=== PATIENT | female | born 1960 | race Caucasian/White ===

== ENCOUNTER 2017-12-08 06:36 | Observation (INO) | payer OTHER ==
--- NOTE | 2017-12-08 06:47 | ED ---
Chest Pain HPI - General Source: patient, EMS, RN notes reviewed Mode of arrival: EMS Limitations: no limitations <Simón Stewart - Last Filed: 12/08/17 07:49> <Sonu Tyler - Last Filed: 12/08/17 08:47> - General Stated Complaint: chest pain Time Seen by Provider: 12/08/17 06:39 - History of Present Illness Initial Comments: This is a 57-year-old female presents emergency department via EMS chief complaint of chest discomfort. Patient states that the pain woke up sleep. She states she had anterior chest pain and elevated up into her jaw. Patient states never had like this in the past. Patient was given aspirin, nitro by EMS. She did state nitro alleviated most of her symptoms. Patient states she does not see a physician a regular basis but denies history of hyperlipidemia, diabetes, hypertension. Patient does have a history of COPD, PE. She states she does not take any current anticoagulants. Patient does have family history of heart disease. She denies any current nausea, vomiting, fever, chills or URI symptoms. (Simón Stewart) - Related Data Home Medications Medication Instructions Recorded Confirmed Levothyroxine Sodium [Synthroid] 150 mcg PO DAILY 12/08/17 12/08/17 Omeprazole [PriLOSEC] 20 mg PO DAILY 12/08/17 12/08/17 Allergies Allergy/AdvReac Type Severity Reaction Status Date / Time codeine AdvReac Nausea & Verified 12/08/17 07:51 Vomiting meperidine [From Demerol] AdvReac Nausea & Verified 12/08/17 07:51 Vomiting Review of Systems ROS Other: All systems not noted in ROS Statement are negative. <Simón Stewart - Last Filed: 12/08/17 07:49> ROS Other: All systems not noted in ROS Statement are negative. <Sonu Tyler - Last Filed: 12/08/17 08:47> ROS Statement: Those systems with pertinent positive or pertinent negative responses have been documented in the HPI. EKG Findings - EKG Comments: EKG Findings:: EKG performed at 6:49 normal sinus rhythm with rate of 71 UT 142 QRS 74 QT/QTC 436/474 <Simón Stewart - Last Filed: 12/08/17 07:49> General Exam General appearance: alert, in no apparent distress Head exam: Present: atraumatic, normocephalic, normal inspection Eye exam: Present: normal appearance, PERRL, EOMI. Absent: scleral icterus, conjunctival injection, periorbital swelling ENT exam: Present: normal exam, normal oropharynx, mucous membranes moist Neck exam: Present: normal inspection, full ROM. Absent: tenderness, meningismus, lymphadenopathy Respiratory exam: Present: normal lung sounds bilaterally. Absent: respiratory distress, wheezes, rales, rhonchi, stridor Cardiovascular Exam: Present: regular rate, normal rhythm, normal heart sounds. Absent: systolic murmur, diastolic murmur, rubs, gallop, clicks GI/Abdominal exam: Present: soft, normal bowel sounds. Absent: distended, tenderness, guarding, rebound, rigid Back exam: Absent: CVA tenderness (R), CVA tenderness (L) Neurological exam: Present: alert, oriented X3, CN II-XII intact Skin exam: Present: warm, dry, intact, normal color. Absent: rash <Simón Stewart - Last Filed: 12/08/17 07:49> Course <Simón Stewart - Last Filed: 12/08/17 07:49> <Sonu Tyler - Last Filed: 12/08/17 08:47> Vital Signs 12/08/17 06:39 Temperature 97.9 F Pulse Rate 73 Respiratory 16 Rate Blood Pressure 113/63 - Reevaluation(s) Reevaluation #1: 12/08/17 06:46 Patient was given aspirin and nitro prior arrival not given in the emergency department (Simón Stewart) Reevaluation #2: 12/08/17 07:44 PA supervision: I personally do a [id number] evaluation the patient did discuss findings with her and her family members were present. I do agree with the assessment and plans as written. Patient did demonstrate retrosternal chest pain rating to her jaw on her left arm. This woke her up from sleep. It was very severe she stated 15/10 severity she's never had pain like this before the pain continue for more than 20 minutes before calling EMS she was given aspirin nitroglycerin which did help the pain to resolve. She is been watching emergency department throughout her stay in the morning and he has no further pain. EKG showed no acute findings. Patient is a former smoker and this does increase her risk for CAD. Patient will be admitted for evaluation inpatient with cardiology consultation. Her physical examination a my exam was unremarkable (Sonu Tyler) Reevaluation #3: 12/08/17 07:58 Patient was noted have an elevated d-dimer does have a prior history of PE. CAT scan has been ordered and is pending at this time. (Sonu Tyler) Reevaluation #4: 12/08/17 08:47 Computed tomography scan was evaluated. No evidence of pulmonary embolism. ( Sonu Tyler) Chest Pain MDM <Simón Stewart - Last Filed: 12/08/17 07:49> <Sonu Tyler - Last Filed: 12/08/17 08:47> - [facility] Patient is pain-free and will be admitted for evaluation by cardiology. I did discuss the case with Dr. Damian. Patient did have a CAT scan of the chest as she had an elevated d-dimer. This is negative for PE. (Sonu Tyler) Disposition <Simón Stewart - Last Filed: 12/08/17 07:49> <Sonu Tyler - Last Filed: 12/08/17 08:47> Clinical Impression: Chest pain, Unstable angina pectoris, Acute coronary syndrome Disposition: ADMITTED IP TO THIS [facility] Condition: Stable
[2017-12-08] MEDS ORDERED: NITROGLYCERIN OINT 1 INCH/GM PACKET TOPICAL STA (06:59)
[2017-12-08] MEDS ORDERED: HEPARIN SODIUM,PORCINE 5,000 UNIT/ML 1 ML VIAL IV STA (07:00)
[2017-12-08 07:17] LABS: Basophils % (A) 1 %; Eosinophils # (A) 0.1 k/uL (0-0.7); Eosinophils % (A) 2 %; HCT 34.7 % (34.0-46.0); Hypochromasia Slight; Lymphocytes # (A) 2.3 k/uL (1.0-4.8); Lymphocytes % (A) 46 %; MCH 25.2 pg (25.0-35.0); MCHC 31.8 g/dL (31.0-37.0); MCV 79.2 fL (80.0-100.0); Mean Platelet Volume 7.4; Monocytes # (A) 0.3 k/uL (0-1.0); Monocytes % (A) 7 %; Neutrophils # (A) 2.1 k/uL (1.3-7.7); Neutrophils % (A) 42 %; Platelet Count 336 k/uL (150-450); RBC 4.38 m/uL (3.80-5.40); RDW 15.4 % (11.5-15.5); WBC 5.1 k/uL (3.8-10.6)
[2017-12-08 07:28] LABS: ALT 32 U/L (9-52); AST 32 U/L (14-36); Alkaline Phosphatase 96 U/L (38-126); Anion Gap 9 mmol/L; Blood Urea Nitrogen 15 mg/dL (7-17); Calcium 9.5 mg/dL (8.4-10.2); Carbon Dioxide 22 mmol/L (22-30); Chloride 109 mmol/L (98-107); Glucose 99 mg/dL (74-99); Lipase 80 U/L (23-300); Magnesium 1.7 mg/dL (1.6-2.3); Sodium 140 mmol/L (137-145); Total Bilirubin 0.4 mg/dL (0.2-1.3); Total Protein 6.9 g/dL (6.3-8.2)
[2017-12-08 07:31] LABS: Creatine Kinase 80 U/L (30-135)
[2017-12-08 07:42] LABS: Prothrombin Time 9.9 sec (9.0-12.0)
[2017-12-08 07:44] LABS: Creatine Kinase MB 0.8 ng/mL (0.0-2.4); Troponin I <0.012 ng/mL (0.000-0.034)
[2017-12-08 07:47] LABS: D-Dimer 1.34 mg/L FEU (<0.60)
[2017-12-08] MEDS ORDERED: NITROGLYCERIN SL TABS 0.4 MG TAB SUBLINGUAL PRN (07:47)
--- NOTE | 2017-12-08 08:07 | XR ---
EXAMINATION TYPE: XR chest 2V DATE OF EXAM: 12/08/2017 COMPARISON: NONE HISTORY: Chest pain TECHNIQUE: Frontal and lateral views of the chest are obtained. FINDINGS: There is no focal air space opacity, pleural effusion, or pneumothorax seen. The cardiac silhouette size is within normal limits. There are prominent lung volumes. There are overlying card iac leads. The osseous structures are intact. IMPRESSION: No acute cardiopulmonary process.
--- NOTE | 2017-12-08 08:36 | CT ---
CT CHEST FOR PULMONARY EMBOLISM. EXAMINATION TYPE: CT chest angio for PE DATE OF EXAM: 12/08/2017 INDICATION: SOB CT DLP: 592 mGycm, Automated exposure control for dose reduction was used. CONTRAST: Patient injected with 82 mL of Isovue 370. COMPARISON: None TECHNIQUE: CT of the chest is performed on a spiral scan at 2 mm thick sections. Study is performed with intravenous contrast timed for evaluation for pulmonary embolism. This will limit additional po rtions of the evaluation. 3-D MIP images reconstructed by the technologist are reviewed on the compu ter in the coronal and sagittal planes. FINDINGS: No persistent filling defects are evident to suggest an acute pulmonary embolism. No mediastinal or hilar adenopathy enlarged by CT criteria is evident. The ascending aorta diameter at the level of the main pulmonary artery is 3.3 cm. The main pulmonary artery diameter at the bifur cation is 2.0 cm. Lung windows are clear. Limited CT section through the upper abdomen are unremarkable. IMPRESSIONS: 1. No acute pulmonary embolism.
[2017-12-08] MEDS: HEPARIN SOD,PORK IN 0.45% NACL 25,000 UNIT in 0.45% NACL 1 500ML.BAG IV SCH (08:51)
[2017-12-08] MEDS: ACETAMINOPHEN TAB 325 MG TAB PO PRN ×2 (11:49→19:33)
[2017-12-08] MEDS ORDERED: HEPARIN SODIUM,PORCINE 5,000 UNIT/ML 1 ML VIAL IV PRN (13:25)
[2017-12-08 14:06] LABS: Creatine Kinase 71 U/L (30-135)
[2017-12-08 14:19] LABS: Creatine Kinase MB 0.7 ng/mL (0.0-2.4); Troponin I <0.012 ng/mL (0.000-0.034)
--- NOTE | 2017-12-08 14:55 | P.HPIM ---
History of Present Illness 57-year-old pleasant female came in with the complaints of 10 /10 chest pain radiating to the jaw and abdomen along with diaphoresis, denied any short of breath nonpruritic in nature when she woke up today morning. Lasted about 15 minutes improved with aspirin and sublingual nitroglycerin pain and that was given by EMS. Patient EKG did show some T-wave inversions in the anterior leads. Troponin is negative. Patient doesn't have any family history of premature coronary artery disease denied any history of hypertension that was metastatic hyperlipidemia. Quit smoking 20 years ago. Her chest pain is not related to food. Her chest pain completely resolved now patient does have a nitro patch in place. CT angios the chest is negative for pulmonary embolism. Review of Systems REVIEW OF SYSTEMS: CONSTITUTIONAL: No fever, no malaise, no fatigue. HEENT: No recent visual problems or hearing problems. Denied any sore throat. CARDIOVASCULAR: no cough, no hemoptysis. GASTROINTESTINAL: No diarrhea, no nausea, no vomiting, no abdominal pain. Normoactive bowel sounds. NEUROLOGICAL: No headaches, no weakness, no numbness. HEMATOLOGICAL: Denies any bleeding or petechiae. GENITOURINARY: Denies any burning micturition, frequency, or urgency. MUSCULOSKELETAL/RHEUMATOLOGICAL: Denies any joint pain, swelling, or any muscle pain. ENDOCRINE: Denies any polyuria or polydipsia. The rest of the 14-point review of systems is negative. 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 History of Any Multi-Drug Resistant Organisms: None Reported Past Surgical History: Appendectomy, Section, Hysterectomy Additional Past Surgical History / Comment(s): thyroid removed, surgery for paralized vocal cord-caused narrowing of trachea, L leg large lipoma removed, multiple laparoscopic surgeries for adhesions. Additional Past Anesthesia/Blood Transfusion Reaction / Comment(s): PT HAS NARROWED TRACHEA D/T SURGERY FOR PARALYZED VOCAL CORD-CARE NEEDS TO BE TAKEN IF NEED TO INTUBATE. Smoking Status: Former smoker - Past Family History Father Family Medical History: Cancer Additional Family Medical History / Comment(s): Father from cancerous brain tumor at the age of 54yrs. Cancer runs very strongley in his family, 6 out of his 7 siblings from various types of cancer. Mother Family Medical History: Coronary Artery Disease (CAD), Dementia, Hypertension Additional Family Medical History / Comment(s): Mother had an arrhythmia. She at the age of 73 yrs from dementia. Medications and Allergies Home Medications Medication Instructions Recorded Confirmed Type Levothyroxine Sodium [Synthroid] 150 mcg PO DAILY 12/08/17 12/08/17 History Omeprazole [PriLOSEC] 20 mg PO DAILY 12/08/17 12/08/17 History Allergies Allergy/AdvReac Type Severity Reaction Status Date / Time codeine AdvReac Nausea & Verified 12/08/17 10:25 Vomiting meperidine [From Demerol] AdvReac Nausea & Verified 12/08/17 10:25 Vomiting Physical Exam Vitals: Vital Signs Temp Pulse Pulse Resp BP BP Pulse Ox 12/08/17 13:19 97.2 F L 60 18 127/82 100 12/08/17 13:10 97.9 F 59 L 18 106/69 99 12/08/17 12:54 59 L 18 106/69 99 12/08/17 11:50 60 18 120/85 98 12/08/17 08:54 59 L 18 104/69 100 12/08/17 06:39 97.9 F 73 16 113/63 Intake and Output 12/07/17 12/08/17 12/08/17 22:59 06:59 14:59 Other: Weight 83.915 kg 84.5 kg PHYSICAL EXAMINATION: GENERAL: The patient is alert and oriented x3, not in any acute distress. Well developed, well nourished. HEENT: Pupils are round and equally reacting to light. EOMI. No scleral icterus. No conjunctival pallor. Normocephalic, atraumatic. No pharyngeal erythema. No thyromegaly. CARDIOVASCULAR: S1 and S2 present. No murmurs, rubs, or gallops. PULMONARY: Chest is clear to auscultation, no wheezing or crackles. ABDOMEN: Soft, nontender, nondistended, normoactive bowel sounds. No palpable organomegaly. MUSCULOSKELETAL: No joint swelling or deformity. EXTREMITIES: No cyanosis, clubbing, or pedal edema. NEUROLOGICAL: Gross neurological examination did not reveal any focal deficits. SKIN: No rashes. Results CBC & Chem 7: 12/08/17 06:49 12/08/17 06:49 Labs: Abnormal Lab Results - Last 24 Hours (Table) 12/08/17 12/08/17 12/08/17 Range/Units 06:49 06:49 06:49 Hgb 11.0 L (11.4-16.0) gm/dL MCV 79.2 L (80.0-100.0) fL APTT 20.0 L (22.0-30.0) sec D-Dimer 1.34 H (<0.60) mg/L FEU Chloride 109 H (98-107) mmol/L 12/08/17 Range/Units 13:27 Hgb (11.4-16.0) gm/dL MCV (80.0-100.0) fL APTT 38.7 H (22.0-30.0) sec D-Dimer (<0.60) mg/L FEU Chloride (98-107) mmol/L Thrombosis Risk Factor Assmnt - Choose All That Apply Any of the Below Risk Factors Present?: Yes Each Factor Represents 1 point: Abnormal pulmonary function (COPD), Age 41-60 years, Obesity (BMI >25) Other Risk Factors: Yes Each Risk Factor Represents 3 Points: History of DVT/PE Other congenital or acquired thrombophilia - If yes, enter type in comment: No Thrombosis Risk Factor Assessment Total Risk Factor Score: 6 Thrombosis Risk Factor Assessment Level: High Risk Assessment and Plan Plan: Chest pain with typical features: Rule out acute coronary syndromes unstable angina, cardiology will be consulted patient may need a stress test or cardiac catheterization depending on follow-up troponins first troponin is negative. -Gastroesophageal reflux disease -Hypothyroidism For above-mentioned chronic medical problems patient will be resumed and continued on home medications.
--- NOTE | 2017-12-08 15:39 | P.CRDCN ---
History of Present Illness History of present illness: Mrs. Richard is a pleasant 57-year-old female past medical history significant for hypothyroidism, COPD and history of DVT and multiple PE's after surgery. She denies history of coronary artery disease but states she was told she has angina approximately 5 years ago. We've been asked to see her in consultation for complaints of chest pain. She woke up this morning with an acute onset of significant pain in her chest. The pain is described as a heavy pressure sensation that was crushing her chest and keeping her from taking a deep breath. The pain was in her entire chest from epigastric region up into her neck and jaw. She sat on the edge of the bed and tried to work through the pain thinking maybe it was gas pain or muscular. She did some stretching exercises but achieved no relief. The pain was persisted approximately 30 minutes with shortness of breath, dizziness, nausea and diaphoresis. EMS arrived and gave her ASA and SL nitro which provided her with relief of her pain. She has had no further symptoms of chest discomfort, shortness of breath, nausea or diaphoresis however continues to feel dizzy and has a pain in her left lower jaw. She denies associated palpitations or vomiting. She denies radiation to the arms. EKG reveals sinus mechanism with flattened T waves anteriorly. Chest x-ray negative for an acute cardiopulmonary process. CTA chest negative for pulmonary embolism. The descending aorta diameter of 3.3 cm. Laboratory data reviewed, hemoglobin 11, platelets 336, d-dimer 1.34, sodium 140 , potassium 4.0, magnesium 1.7, creatinine 0.72 and cardiac enzymes negative 2. Current daily medications include Synthroid and Prilosec. There is no old cardiac diagnostic testing to review. Review of Systems At the time of my exam: CONSTITUTIONAL: Denies fever. Denies chills. EYES: Denies blurred vision. Denies vision changes. Denies eye pain. EARS, NOSE, MOUTH & THROAT: Denies headache. Denies sore throat. Denies ear pain. Complains of left jaw discomfort. CARDIOVASCULAR: Denies chest pain. Denies shortness of breath. Denies orthopnea. Denies PND. Denies palpitations. RESPIRATORY: Denies cough. GASTROINTESTINAL: Denies abdominal pain. Denies diarrhea. Denies constipation. Denies nausea. Denies vomiting. MUSCULOSKELETAL: Denies myalgias. INTEGUMENTARY: Denies pruitis. Denies rash. NEUROLOGIC: Denies numbness. Denies tingling. Denies weakness. Complains of dizziness. PSYCHIATRIC: Denies anxiety. Denies depression. ENDOCRINE: Denies fatigue. Denies weight change. Denies polydipsia. Denies polyurina. GENITOURINARY: Denies burning, hematuria or urgency with micturation. HEMATOLOGIC: Denies history of anemia. Denies bleeding. 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 History of Any Multi-Drug Resistant Organisms: None Reported Past Surgical History: Appendectomy, Section, Hysterectomy Additional Past Surgical History / Comment(s): thyroid removed, surgery for paralized vocal cord-caused narrowing of trachea, L leg large lipoma removed, multiple laparoscopic surgeries for adhesions. Additional Past Anesthesia/Blood Transfusion Reaction / Comment(s): PT HAS NARROWED TRACHEA D/T SURGERY FOR PARALYZED VOCAL CORD-CARE NEEDS TO BE TAKEN IF NEED TO INTUBATE. Smoking Status: Former smoker - Past Family History Father Family Medical History: Cancer Additional Family Medical History / Comment(s): Father from cancerous brain tumor at the age of 54yrs. Cancer runs very strongley in his family, 6 out of his 7 siblings from various types of cancer. Mother Family Medical History: Coronary Artery Disease (CAD), Dementia, Hypertension Additional Family Medical History / Comment(s): Mother had an arrhythmia. She at the age of 73 yrs from dementia. Medications and Allergies Home Medications Medication Instructions Recorded Confirmed Type Levothyroxine Sodium [Synthroid] 150 mcg PO DAILY 12/08/17 12/08/17 History Omeprazole [PriLOSEC] 20 mg PO DAILY 12/08/17 12/08/17 History Allergies Allergy/AdvReac Type Severity Reaction Status Date / Time codeine AdvReac Nausea & Verified 12/08/17 10:25 Vomiting meperidine [From Demerol] AdvReac Nausea & Verified 12/08/17 10:25 Vomiting Physical Exam Vitals: Vital Signs Temp Pulse Pulse Resp BP BP Pulse Ox 12/08/17 13:19 97.2 F L 60 18 127/82 100 12/08/17 13:10 97.9 F 59 L 18 106/69 99 12/08/17 12:54 59 L 18 106/69 99 12/08/17 11:50 60 18 120/85 98 12/08/17 08:54 59 L 18 104/69 100 12/08/17 06:39 97.9 F 73 16 113/63 Intake and Output 12/08/17 12/08/17 12/08/17 06:59 14:59 22:59 Other: Weight 83.915 kg 84.5 kg Blood pressure 127/82 heart rate 60 afebrile maintaining oxygen saturation on room air GENERAL: This is a 57-year-old female in no apparent distress at the time of my examination. HEENT: Head is atraumatic, normocephalic. Pupils are equal, round. Sclerae anicteric. Conjunctivae are clear. Mucous membranes of the mouth are moist. Neck is supple. There is no jugular venous distention. No carotid bruit is heard. LUNGS: Clear to auscultation no wheezes, rales or rhonchi. No chest wall tenderness is noted on palpation or with deep breathing. HEART: Regular rate and rhythm without murmurs, rubs or gallops. S1 and S2 heard. ABDOMEN: Soft, nontender. Bowel sounds are heard. No organomegaly noted. EXTREMITIES: No evidence of peripheral edema and no calf tenderness noted. VASCULAR: Radial and dorsalis pedis pulses palpated, no evidence of clubbing. NEUROLOGIC: Patient is awake, alert and oriented x3. Results 12/08/17 06:49 12/08/17 06:49 Cardiac Enzymes 12/08/17 12/08/17 12/08/17 Range/Units 06:49 06:49 13:27 AST 32 (14-36) U/L CK-MB (CK-2) 0.8 0.7 (0.0-2.4) ng/mL Troponin I <0.012 <0.012 (0.000-0.034) ng/mL Coagulation 12/08/17 12/08/17 Range/Units 06:49 13:27 PT 9.9 (9.0-12.0) sec APTT 20.0 L 38.7 H (22.0-30.0) sec CBC 12/08/17 Range/Units 06:49 WBC 5.1 (3.8-10.6) k/uL RBC 4.38 (3.80-5.40) m/uL Hgb 11.0 L (11.4-16.0) gm/dL Hct 34.7 (34.0-46.0) % Plt Count 336 (150-450) k/uL Comprehensive Metabolic Panel 12/08/17 Range/Units 06:49 Sodium 140 (137-145) mmol/L Potassium 4.0 (3.5-5.1) mmol/L Chloride 109 H (98-107) mmol/L Carbon Dioxide 22 (22-30) mmol/L BUN 15 (7-17) mg/dL Creatinine 0.72 (0.52-1.04) mg/dL Glucose 99 (74-99) mg/dL Calcium 9.5 (8.4-10.2) mg/dL AST 32 (14-36) U/L ALT 32 (9-52) U/L Alkaline Phosphatase 96 (38-126) U/L Total Protein 6.9 (6.3-8.2) g/dL Albumin 4.0 (3.5-5.0) g/dL Current Medications Generic Name Dose Route Start Last Admin Trade Name Freq PRN Reason Stop Dose Admin Acetaminophen 650 mg 12/08/17 11:42 12/08/17 11:49 Tylenol Tab PO 650 mg Q6HR PRN Administration Fever and/ or Mild Pain Aspirin 325 mg 12/09/17 09:00 Aspirin PO DAILY [facility] Heparin Sodium (Porcine) 0 unit 12/08/17 13:25 Heparin IV PER PROTOCOL PRN Low PTT Protocol Heparin Sodium/Sodium Chloride 500 mls @ 19.97 mls/hr 12/08/17 07:00 08:51 25,000 unit/ Sodium Chloride IV 11.9 units/kg/hr .Q24H IVANA 19.97 mls/hr Administration Protocol 11.9 UNITS/KG/HR Levothyroxine Sodium 150 mcg 12/09/17 06:30 Synthroid PO 0630 [facility] Nitroglycerin 0.4 mg 12/08/17 07:47 Nitrostat SUBLINGUAL Q5M PRN Chest Pain Pantoprazole Sodium 40 mg 12/09/17 07:30 Protonix PO AC-[id number] IVANA Intake and Output 12/08/17 12/08/17 12/08/17 06:59 14:59 22:59 Other: Weight 83.915 kg 84.5 kg Patient Weight 12/09/17 06:59 Weight 84.5 kg 12/08/17 06:49 12/08/17 06:49 Assessment and Plan Assessment: ASSESSMENT Chest pain at rest, resolved. Ongoing dizziness and jaw discomfort. Hypothyroidism History of PE in the past, not on long-term anticoagulation Elevated d-dimer, negative PE PLAN Continue to obtain serial cardiac enzymes to rule out an acute coronary event. Obtain 2D echocardiogram and doppler study to assess cardiac structure and function. If troponins are negative and an acute event has been ruled out, heparin infusion can be discontinued. Obtain lipid panel. NPO after midnight for possible stress testing in the morning depending on diagnostic test findings. Further recommendations to follow. Thank you kindly for this consultation. Nurse Practitioner note has been reviewed, I agree with a documented findings and plan of care. Patient was seen and examined.
[2017-12-08 21:23] LABS: Creatine Kinase 64 U/L (30-135)
[2017-12-08 21:36] LABS: Creatine Kinase MB 0.7 ng/mL (0.0-2.4); Troponin I <0.012 ng/mL (0.000-0.034)
[2017-12-09] MEDS: HEPARIN SOD,PORK IN 0.45% NACL 25,000 UNIT in 0.45% NACL 1 500ML.BAG IV SCH (05:32)
[2017-12-09] MEDS: ACETAMINOPHEN TAB 325 MG TAB PO PRN (06:06)
[2017-12-09] MEDS ORDERED: LEVOTHYROXINE 75 MCG TAB PO SCH (06:30)
[2017-12-09 07:20] LABS: Mean Platelet Volume 6.6; Platelet Count 273 k/uL (150-450)
[2017-12-09] MEDS ORDERED: PANTOPRAZOLE 40 MG TABLET PO SCH (07:30)
[2017-12-09] MEDS ORDERED: DOBUTamine DRIP for NUC MED 500 MG in DEXTROSE/WATER 1 250ML.BAG IV ONE (07:43)
[2017-12-09 08:01] LABS: Cholesterol 192 mg/dL (<200); HDL Cholesterol 63 mg/dL (40-60); LDL Cholesterol,Calculated 111 mg/dL (0-99); Triglycerides 91 mg/dL (<150)
[2017-12-09 08:03] VITALS: RESP 18
--- NOTE | 2017-12-09 08:18 | PN ---
PROGRESS NOTE Mrs. Richard is a 57-year-old female with no prior documented history of coronary artery disease who presented to the emergency room with symptoms of chest discomfort. The discomfort woke her up from sleep, associated with diaphoresis and dyspnea. She came into the emergency room for further evaluation. At the time of my evaluation, she is pain free. Patient works on a regular basis, but she is not very active physically because of her history of asthma and emphysema. She has not smoked in 20 years. She denies any dizziness or palpitation. She denies any syncope. She has occasional peripheral edema. Her coronary risk factors are remarkable for the remote history of smoking. She is nondiabetic, not hypertensive. Her medications at home include Prilosec and Synthroid. PHYSICAL EXAMINATION: Blood pressure 137/60 with the heart in the 60s. HEAD: Normocephalic. EYES: Sclerae anicteric. NECK: Good carotid upstroke. No bruit. No jugular venous distention. LUNGS: Clear to auscultation. HEART: Regular rate and rhythm. S1, S2. No S3. No rub. ABDOMEN: Soft, nontender. Positive bowel sounds. No organomegaly. EXTREMITIES: No edema. Intact distal pulses. EKG revealed sinus mechanism, normal axis and intervals with poor R progression. LAB DATA: Lab data revealed troponin less than 0.[address] angiogram of the chest revealed no evidence of pulmonary embolism. IMPRESSION: 1. Chest discomfort of unclear etiology, has some atypical features for ischemic heart disease. 2. History of asthma. RECOMMENDATION: I will stop the heparin, proceed with the dobutamine stress echocardiogram to further assess her status and guide her treatment. Depending on results of testing, further recommendation will be made. Thank you for this consult. We will follow with you. MMODL / IJN: [id number] /
[2017-12-09] MEDS ORDERED: ASPIRIN 325 MG TAB PO SCH (09:00)
[2017-12-09] MEDS ORDERED: ASPIRIN 81 MG PO SCH (09:00)
--- NOTE | 2017-12-09 10:56 | ECHOF ---
Referral Reason: MEASUREMENTS -------- HEIGHT: 170.2 cm WEIGHT: 84.4 kg BP: 127/82 RVIDd: 2.2 cm (< 3.3) IVSd: 0.8 cm (0.6 - 1.1) LVIDd: 3.8 cm (3.9 - 5.3) LVPWd: 0.8 cm (0.6 - 1.1) IVSs: 1.3 cm LVIDs: 2.2 cm LVPWs: 1.3 cm LAESV Index (A-L): 18.87 ml/m Ao Diam: 2.9 cm (2.0 - 3.7) AV Cusp: 1.5 cm (1.5 - 2.6) LA Diam: 2.6 cm (2.7 - 3.8) EPSS: 1.2 cm MV E Dejan: 0.85 m/s MV DecT: 214 ms MV A Dejan: 0.78 m/s MV E/A Ratio: 1.09 RAP: 5.00 mmHg RVSP: 26.55 mmHg MV EF SLOPE: 140.38 mm/s (70 - 150) MV EXCURSION: 1.76 cm (> 18.000) FINDINGS -------- Sinus rhythm. This was a technically good study. The left ventricular size is normal. Left ventricular wall thickness is normal. Overall left vent ricular systolic function is normal with, an EF between 55 - 60 %. The right ventricle is normal in size and function. Normal LA size by volume 22+/-6 ml/m2. The right atrium is normal in size. The aortic valve is trileaflet, and appears structurally normal. No aortic stenosis or regurgitation. The mitral valve is normal. Mild mitral regurgitation is present. Trace tricuspid regurgitation present. There is no evidence of pulmonary hypertension. The right ventricular systolic pressure, as measured by Doppler, is 26.55mmHg. Trace/mild (physiologic) pulmonic regurgitation. The aortic root size is normal. Normal inferior vena cava with normal inspiratory collapse consistent with estimated right atrial pre ssure of 5 mmHg. There is no pericardial effusion. CONCLUSIONS -------- 1. Sinus rhythm. 2. This was a technically good study. 3. The left ventricular size is normal. 4. Left ventricular wall thickness is normal. 5. Overall left ventricular systolic function is normal with, an EF between 55 - 60 %. 6. Normal LA size by volume 22+/-6 ml/m2. 7. The aortic valve is trileaflet, and appears structurally normal. No aortic stenosis or regurgitati on. 8. Mild mitral regurgitation is present. 9. Trace tricuspid regurgitation present. 10. There is no evidence of pulmonary hypertension. 11. Trace/mild (physiologic) pulmonic regurgitation. 12. The aortic root size is normal. 13. There is no pericardial effusion. HAMMERSMITH HELPER: Adam Ochoa RDCS
--- NOTE | 2017-12-09 11:11 | ECHOS ---
STRESS ECHOCARDIOGRAM INDICATIONS: Chest pain. BASELINE HEART RATE: 59 BASELINE BLOOD PRESSURE: 106/73 MAXIMUM HEART RATE: 143 MAXIMUM BLOOD PRESSURE: 137/53 85% MPHR: 140 100% MPHR: 165 MAXIMUM STAGE REACHED: II TOTAL EXERCISE TIME: 6:35 CLINICAL INFORMATION: Baseline rhythm is sinus mechanism, rate of 59, normal axis, intervals, normal electrocardiogram. Baseline blood pressure 106/73 mmHg. Patient received infusion of dobutamine per protocol. Peak rate 143 beats per minute which is equal to 86% maximum predicted heart rate. Blood pressure 137/53 mmHg. Electrocardiograph monitoring revealed no evidence of diagnostic ischemic ST deviation. FINDINGS: Baseline echocardiogram revealed normal function at peak exercise. There was normal wall motion augmentation with no hypokinesis or dyskinesis. CONCLUSION: 1. Normal electrocardiograph response to dobutamine infusion. 2. Normal stress echocardiogram with no evidence of stress-induced ischemia. MMODL / IJN: [id number] /
[2017-12-09 11:42] VITALS: BP 108/73; PULSE 65; TEMP 98.5
--- NOTE | 2017-12-09 15:11 | P.DS ---
Providers Date of admission: 12/08/17 07:47 Expected date of discharge: 12/09/17 Attending physician: Minnie Damian Consults: 12/08/17 07:47 Consult Physician Urgent Consulting Provider: Matthew Barney Consult Reason/Comments: chest pain Do you want consulting provider notified?: Yes Primary care physician: Stated None Hospital Course: Final Diagnoses: Chest pain with typical features: acute coronary syndrome,[place] ruled out. Status post negative stress echo cardiogram. -Elevated d-dimer, negative PE, in a patient with history of PE greater than 5 years ago -Gastroesophageal reflux disease -Hypothyroidism -Descending aorta 3.3 cm -Hyperlipidemia, LDL 111, cholesterol 192, HDL 63, triglycerides 91 Hospital course:57-year-old pleasant female came in with the complaints of 10 / 10 chest pain radiating to the jaw and abdomen along with diaphoresis, denied any short of breath nonpruritic in nature when she woke up today morning. Lasted about 15 minutes improved with aspirin and sublingual nitroglycerin pain and that was given by EMS. Patient EKG did show some T-wave inversions in the anterior leads. Troponins x 3 negative. Patient doesn't have any family history of premature coronary artery disease denied any history of hypertension , hyperlipidemia. Quit smoking 20 years ago. Her chest pain is not related to food. Her chest pain completely resolved now patient does have a nitro patch in place. CT angios the chest is negative for pulmonary embolism. Evaluated by cardiology, underwent stress echocardiogram, reporting normal stress echocardiogram with no evidence of stress-induced ischemia, normal electrographic response to dobutamine infusion. Echo reported normal LV function, EF 55-60%, no evidence of pulmonary hypertension, no pericardial effusion. Cleared by cardiology for discharge. Patient is being discharged home in a stable condition with guarded prognosis. GENERAL: Alert and oriented 3, no acute distress. LUNGS: Clear to auscultation no wheezes, rales or rhonchi. No chest wall tenderness is noted on palpation or with deep breathing. HEART: Regular rate and rhythm without murmurs, rubs or gallops. S1 and S2 heard. ABDOMEN: Soft, nontender. Bowel sounds are heard. NEUROLOGIC: No focal deficits The impression and plan of care has been dictated as directed. : I performed a history and examination of this patient, discussed the same with the dictator. I agree with the dictator's note ,documented as a scribe. Any additional findings or plans will be noted. Time taken: 35 minutes Patient Condition at Discharge: Stable Plan - Discharge Summary Discharge Rx Participant: No New Discharge Prescriptions: No Action Omeprazole [PriLOSEC] 20 mg PO DAILY Levothyroxine Sodium [Synthroid] 150 mcg PO DAILY Discharge Medication List Levothyroxine Sodium [Synthroid] 150 mcg PO DAILY 12/08/17 [History] Omeprazole [PriLOSEC] 20 mg PO DAILY 12/08/17 [History] Follow up Appointment(s)/Referral(s): Juan C Cuellar MD [STAFF PHYSICIAN] - 12/17/17 10:00 am Felisha Sheppard MD [REFERRING] - 3 Days (office will call patient at home to set up initial office visit. ) Ambulatory/Diagnostic Orders: Complete Blood Count w/diff [LAB.AMB] Time Frame: 3 Days, Location: None Selected Activity/Diet/Wound Care/Special Instructions: Diet: Cardiac, low cholesterol Activity: Limited until follow up Discharge Disposition: HOME SELF-CARE
== END 2017-12-09 13:01 | disposition home or self-care (01) ==
LOC: EC 06:36 → 3OBS 07:47
PROVIDERS: ADMIT Internal Medicine; ATTEND Internal Medicine
DX: R07.89 Other chest pain (principal); E78.5 Hyperlipidemia, unspecified; K21.9 Gastro-esophageal reflux disease without esophagitis; J43.9 Emphysema, unspecified; R79.89 Other specified abnormal findings of blood chemistry; R42 Dizziness and giddiness; R61 Generalized hyperhidrosis; R68.84 Jaw pain; E89.0 Postprocedural hypothyroidism; E66.9 Obesity, unspecified; Z68.29 Body mass index [BMI] 29.0-29.9, adult; Z79.890 Hormone replacement therapy; Z79.899 Other long term (current) drug therapy; Z88.5 Allergy status to narcotic agent; Z87.891 Personal history of nicotine dependence; Z86.711 Personal history of pulmonary embolism; Z86.718 Personal history of other venous thrombosis and embolism; Z90.710 Acquired absence of both cervix and uterus; Z90.89 Acquired absence of other organs; Z86.69 Personal history of other diseases of the nervous system and sense organs; Z82.49 Family history of ischemic heart disease and other diseases of the circulatory system; Z81.8 Family history of other mental and behavioral disorders; Z80.9 Family history of malignant neoplasm, unspecified
CPT/HCPCS: 99285 ×2; 96365 ×2; 96366 ×7; 96376 ×3; 36415; 93005; 93306; 93351; 85379; 80061; 80053; 82550; 82553; 83690; 83735; 84484; 85025; 85049; 85610; 85730 ×2; 71046; 71275; G0378 ×2; J1250; J1644 ×3; Q9967

== ENCOUNTER → 2021-03-15 | Outpatient (CLI) | payer OTHER ==
[~2021-03-15] MED LIST: REGADENOSON 0.4 MG/5 ML SYRINGE IV ONE
--- NOTE | 2021-03-15 11:28 | NM ---
EXAMINATION TYPE: NM stress lexiscan cardiolite DATE OF EXAM: 03/15/2021 COMPARISON: NONE HISTORY: Chest pain TECHNIQUE: After the intravenous administration of 10.2 mCi Tc 99m Sestamibi - Cardiolite resting SP ECT images acquired 45 minutes post injection. The patient received 0.4mg Lexiscan, 24.6 mCi Tc 99m Sestamibi - Stress images obtained [address] injection FINDINGS: Review of stress and rest SPECT images demonstrates questionable defect involving the apex of the rohan cardium. Small area of reversible ischemia not excluded. Gated analysis shows normal wall motion wit h an estimated left ventricular ejection fraction of 91 %. Referring clinician notified by telephone 11:26 AM and 03/15/2021. IMPRESSION: 1. The lower maps suggests possible small area of stress-induced reversible ischemia with the SPECT i mages somewhat limited. This could be artifactual correlate clinically to exclude a small apical area of stress-induced reversible ischemia.
--- NOTE | 2021-03-15 18:12 | EST ---
EXERCISE STRESS AGE: 60 SEX: F HT: 5'7" WT: 185 lbs. PROTOCOL: Lexiscan Cardiolite STAGE: NA DURATION OF EXERCISE: NA HEART RATE REST: 113 BLOOD PRESSURE REST: 130/94 MAXIMUM HEART RATE ACHIEVED: 140 MAXIMUM BLOOD PRESSURE: 138/84 85% MPHR: 140 100% MPHR: 138 METS: 162 INDICATIONS: Pre-Op RESULTS: Baseline EKG revealed normal sinus rhythm without significant ST changes. With Lexiscan administration, heart rate went up from 113 to 139 beats per minute. Blood pressure changed from 130/94 to 127/80. EKG remained unremarkable. By EKG criteria, this is an unremarkable Lexiscan stress test with sinus tachycardia. The nuclear scan results which are more pertinent, will be reported by the radiologist. MMCLAYTONL / IJN: [id number] /
== END | disposition home or self-care (01) ==
LOC: RADNMMAIN 08:06
PROVIDERS: ATTEND Internal Medicine
DX: Z01.818 Encounter for other preprocedural examination (principal); R07.9 Chest pain, unspecified
CPT/HCPCS: 93017; 78452; A9500; J2785

== ENCOUNTER 2024-03-17 02:03 | Emergency (ER) | payer OTHER ==
[2024-03-17] MEDS: OLANZapine 10 MG VIAL IM STA (03:10)
[2024-03-17] MEDS: MIDAZOLAM 1 MG/ML 5 ML VIAL IM STA (04:44)
[2024-03-17 05:24] LABS: Glucose,Whole Blood 129 mg/dL (70-110)
--- NOTE | 2024-03-17 05:50 | CT ---
EXAM: CT Head Without Intravenous Contrast CLINICAL HISTORY: ITS.REASON CT Reason: speech difficulty, hx aneurysm TECHNIQUE: Axial computed tomography images of the head/brain without intravenous contrast. CTDI is 49.1 mGy and DLP is 1160.6 mGy-cm. This CT exam was performed using one or more of the following dose reduction techniques: automated exposure control, adjustment of the mA and/or kV according to patient size, and/or use of iterative reconstruction technique. COMPARISON: No relevant prior studies available. FINDINGS: Brain: Mild volume loss with prominent ventricles and sulci. Mild periventricular white matter hypoattenuation likely reflects chronic small vessel disease. No hemorrhage. Ventricles: See above. Bones/joints: Unremarkable. No acute fracture. Soft tissues: Unremarkable. Sinuses: Unremarkable as visualized. No acute sinusitis. Mastoid air cells: Unremarkable as visualized. No mastoid effusion. Orbits: Bilateral intraocular lens implants. IMPRESSION: No acute findings in the head/brain.
--- NOTE | 2024-03-17 05:53 | XR ---
EXAM: XR Chest, 1 View CLINICAL HISTORY: ITS.REASON XR Reason: altered mental status TECHNIQUE: Frontal view of the chest. COMPARISON: XR Chest dated 12/08/2017 FINDINGS: Lungs: Low lung volumes. Increased interstitial markings may be exaggerated appearance due to low lung volumes versus mild edema/inflammatory process. No focal consolidation. Pleural space: Unremarkable. No pneumothorax. Heart: Unremarkable. No cardiomegaly. Mediastinum: Unremarkable. Normal mediastinal contour. Bones/joints: Unremarkable. No acute fracture. IMPRESSION: Increased interstitial markings may be exaggerated appearance due to low lung volumes versus mild edema/inflammatory process.
--- NOTE | 2024-03-17 05:56 | ED ---
Nausea/Vomiting/Diarrhea HPI - General Source: patient, EMS Mode of arrival: EMS <Mona John - Last Filed: 03/17/24 07:02> <Randy Coyle - Last Filed: 03/17/24 14:37> <Casey Cervantes - Last Filed: 03/17/24 18:36> - General Chief complaint: Nausea/Vomiting/Diarrhea Stated complaint: weakness Time Seen by Provider: 03/17/24 02:04 - History of Present Illness Initial comments: 63-year-old female presents to the emergency department. She called EMS reporting weakness, nausea with vomiting. EMS found the patient to have a stutter. Family stated that this was normal for her as she does have a history of CVA. No report of any lateralizing weakness. It was reported that the patient symptoms just started tonight. Upon my evaluation of the patient she does have a slight stutter which is intermittent. She admits that she is concerned about the aneurysm in her head. States that she follows with Dr. Mackey. 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 She cannot tell me when she had the last outpatient evaluation of the coil. She denies any headaches or visual changes. No lateralizing weakness. EMS did give the patient 4 mg of Zofran. Upon further evaluation of the patient she believes that she is "in a dungeon". She is limited in what she shares with us as she is concerned that we are "going to put a chip in her". I did request laboratory studies however patient states that I am going to let her bleed to . I did review the patient's previous history. No identification of any psychiatric illnesses. I did make multiple attempts to call the patient's son however I am unsuccessful. No report of any head injury. No other alleviating, precipitating or modifying factors (Mona John) - Related Data Home Medications Medication Instructions Recorded Confirmed Albuterol Nebulized [Ventolin 2.5 mg INHALATION RT-Q4H PRN 03/17/24 03/17/24 Nebulized] Aspirin 81 mg PO DAILY 03/17/24 03/17/24 Atorvastatin [Lipitor] 40 mg PO DAILY 03/17/24 03/17/24 DULoxetine HCL [Cymbalta] 30 mg PO DAILY 03/17/24 03/17/24 Levothyroxine Sodium [Synthroid] 100 mcg PO DAILY 03/17/24 03/17/24 Losartan [Cozaar] 25 mg PO DAILY 03/17/24 03/17/24 Metoprolol Succinate (ER) [Toprol 50 mg PO DAILY 03/17/24 03/17/24 Xl] Pantoprazole [Protonix] 40 mg PO DAILY 03/17/24 03/17/24 Allergies Allergy/AdvReac Type Severity Reaction Status Date / Time acetaminophen [From [place]] Allergy per PCP Verified 03/17/24 09:15 office amoxicillin Allergy per PCP Verified 03/17/24 09:15 office [place] [employer] Allergy per PCP Verified 03/17/24 09:15 office fentanyl Allergy per PCP Verified 03/17/24 09:15 office hydrocodone [From [place]] Allergy per PCP Verified 03/17/24 09:15 office morphine Allergy per PCP Verified 03/17/24 09:15 office tramadol [From Ultram] Allergy per PCP Verified 03/17/24 09:15 office codeine AdvReac Nausea & Verified 03/17/24 09:15 Vomiting meperidine [From Demerol] AdvReac Nausea & Verified 03/17/24 09:15 Vomiting Review of Systems ROS Other: All systems not noted in ROS Statement are negative. <Mona John - Last Filed: 03/17/24 07:02> ROS Other: All systems not noted in ROS Statement are negative. <Randy Coyle - Last Filed: 03/17/24 14:37> ROS Other: All systems not noted in ROS Statement are negative. <Casey Cervantes - Last Filed: 03/17/24 18:36> ROS Statement: Those systems with pertinent positive or pertinent negative responses have been documented in the HPI. Past Medical History Past Medical History: COPD, CVA/TIA, Deep Vein Thrombosis (DVT), Pulmonary Embolus (PE), Thyroid Disorder Additional Past Medical History / Comment(s): DVT L lower leg then bilateral multiple PEs, hypothyroid/thyroidectomy with vocal cord paralysis-pt had vocal cord surgery with implant and involvement of trachea (narrowing) because of this-care must be taken if pt ever to be intubated, dysphagia, occasional lightheadedness/vertigo/tinnitis/blurred vision-cause unknown. History of Any Multi-Drug Resistant Organisms: None Reported Past Surgical History: Appendectomy, Section, Hysterectomy Additional Past Surgical History / Comment(s): thyroid removed, surgery for paralized vocal cord-caused narrowing of trachea, L leg large lipoma removed, multiple laparoscopic surgeries for adhesions. Additional Past Anesthesia/Blood Transfusion Reaction / Comment(s): PT HAS NARROWED TRACHEA D/T SURGERY FOR PARALYZED VOCAL CORD-CARE NEEDS TO BE TAKEN IF NEED TO INTUBATE. Past Psychological History: No Psychological Hx Reported Past Alcohol Use History: Occasional Past Drug Use History: None Reported - Past Family History Father Family Medical History: Cancer Additional Family Medical History / Comment(s): Father from cancerous brain tumor at the age of 54yrs. Cancer runs very strongley in his family, 6 out of his 7 siblings from various types of cancer. Mother Family Medical History: Coronary Artery Disease (CAD), Dementia, Hypertension Additional Family Medical History / Comment(s): Mother had an arrhythmia. She at the age of 73 yrs from dementia. <Mona John - Last Filed: 03/17/24 07:02> General Exam General appearance: alert, in no apparent distress Head exam: Present: atraumatic, normocephalic, normal inspection Eye exam: Present: normal appearance, PERRL, EOMI. Absent: scleral icterus, conjunctival injection, periorbital swelling ENT exam: Present: normal exam, mucous membranes moist Neck exam: Present: normal inspection. Absent: tenderness, meningismus, lymphadenopathy Respiratory exam: Present: normal lung sounds bilaterally. Absent: respiratory distress, wheezes, rales, rhonchi, stridor Cardiovascular Exam: Present: regular rate, normal rhythm, normal heart sounds. Absent: systolic murmur, diastolic murmur, rubs, gallop, clicks GI/Abdominal exam: Present: soft, normal bowel sounds. Absent: distended, tenderness, guarding, rebound, rigid Extremities exam: Present: normal inspection, full ROM, normal capillary refill. Absent: tenderness, pedal edema, joint swelling, calf tenderness Back exam: Present: normal inspection Neurological exam: Present: alert, oriented X3, CN II-XII intact Psychiatric exam: Present: normal affect, normal mood Skin exam: Present: warm, dry, intact, normal color. Absent: rash <Mona John - Last Filed: 03/17/24 07:02> Course Vital Signs 03/17/24 03/17/24 03/17/24 02:05 04:45 06:57 Temperature Pulse Rate 87 65 67 Respiratory 16 18 16 Rate Blood Pressure 123/88 116/76 104/71 O2 Sat by Pulse 98 96 96 Oximetry 03/17/24 03/17/24 03/17/24 07:40 08:56 10:21 Temperature Pulse Rate 61 55 L 62 Respiratory 16 16 18 Rate Blood Pressure 100/67 94/65 103/79 O2 Sat by Pulse 96 100 98 Oximetry 03/17/24 03/17/24 03/17/24 12:00 13:05 16:36 Temperature 97.5 F L Pulse Rate 57 L 58 L 82 Respiratory 18 18 18 Rate Blood Pressure 99/69 109/75 102/68 O2 Sat by Pulse 98 96 Oximetry 03/17/24 17:00 Temperature 97 F L Pulse Rate 60 Respiratory 18 Rate Blood Pressure 124/95 O2 Sat by Pulse 100 Oximetry Medical Decision Making - Lab Data Result diagrams: 03/17/24 06:17 03/17/24 05:47 <Mona John - Last Filed: 03/17/24 07:02> - Lab Data Result diagrams: 03/17/24 06:17 03/17/24 05:47 <Randy Coyle - Last Filed: 03/17/24 14:37> - Lab Data Result diagrams: 03/17/24 06:17 03/17/24 05:47 <Casey Cervantes - Last Filed: 03/17/24 18:36> - Medical Decision Making Was pt. sent in by a medical professional or institution (Dr. PA, [facility], urgent care, hospital, or jail...) When possible be specific @ -[No] Did you speak to anyone other than the patient for history (EMS, parent, family, police, friend...)? What history was obtained from this source @ -Spoke with EMS for history Did you review nursing and triage notes (agree or disagree)? Why? @ -[I reviewed and agree with nursing and triage notes] Were old charts reviewed (outside hosp., previous admission, EMS record, old EKG, old radiological studies, urgent care reports/EKG's, jail records)? Report findings @ -[No old charts were reviewed] Differential Diagnosis (chest pain, altered mental status, abdominal pain women, abdominal pain men, vaginal bleeding, weakness, fever, dyspnea, syncope, headache, dizziness, GI bleed, back pain, seizure, CVA, palpatations, mental health, musculoskeletal)? @ -Differential Altered Mental Status: Hypoglycemia, DKA, hypercapnia, ETOH, overdose, CO poisoning, trauma, myxedema coma, HTN encephalopathy, infection, encephalitis, psychosis, intercranial hemorrhage, hepatic encephalopathy, meningitis, CVA, this is not meant to be an all-inclusive list EKG interpreted by me (3pts min.). @ -Yes and demonstrates sinus rhythm with rate of 67. NV interval 178. QRS 85. QTc of 437. No acute ST segment elevation or depression X-rays interpreted by me (1pt min.). @ -[None done] CT interpreted by me (1pt min.). @ -yes and demonstrates no acute process U/S interpreted by me (1pt. min.). @ -[None done] What testing was considered but not performed or refused? (CT, X-rays, U/S, labs)? Why? @ -[None] What meds were considered but not given or refused? Why? @ -[None] Did you discuss the management of the patient with other professionals (professionals i.e. , PA, [facility], lab, RT, psych nurse, social media content specialist, prior authorization nurse, teacher, community liaison officer, case repairer)? Give summary @ -Spoke with Dr. Coyle who will take over care of the patient Was smoking cessation discussed for >3mins.? @ -[No] Was critical care preformed (if so, how long)? @ -[No] Were there social determinants of health that impacted care today? How? (Homelessness, low income, unemployed, alcoholism, drug addiction, transportation, low edu. Level, literacy, decrease access to med. care, senior living, rehab)? @ -[No] Was there de-escalation of care discussed even if they declined (Discuss DNR or withdrawal of care, Hospice)? DNR status @ -[No] What co-morbidities impacted this encounter? (DM, HTN, Smoking, COPD, CAD, Cancer, CVA, ARF, Chemo, Hep., AIDS, mental health diagnosis, sleep apnea, morbid obesity)? @ -[None] Was patient admitted / discharged? Hospital course, mention meds given and route, prescriptions, significant lab abnormalities, going to OR and other pertinent info. @ -Upon arrival patient seen and evaluated in room 15. Thorough history and physical exam was performed. Patient is reporting a previous history of brain aneurysm. I did order CT. Radiology does come to take the patient and she begins to have extreme paranoid behavior. Will not allow radiology to take her. Patient starts having very paranoid thoughts that she is being microchip. I did attempt to contact the patient's son on several attempts however I am unsuccessful. Patient is trying to leave. I did give her 10 mg of Zyprexa followed by 5 mg of Versed. Patient is taken to CT which demonstrates no acute process. Laboratory studies are conducted. Urinalysis is obtained. Patient needs to be evaluated by EPS which is pending at this time. Case will be signed out to Dr. Coyle for further management (Mona John) Patient seen by mental health services twice and she provided limited information. I did reevaluate patient. She does admit to having hallucinations including with something on the floor, seeing bugs and HR of her sons as well as something with her dog. Patient also has concerns that somebody is trying to put a chip in her. Patient has no physical complaints at this time. Patient denies suicidal or homicidal thoughts. Patient again seen by mental health services. Chest x-ray interpreted by myself shows some mild increased interstitial markings, nonspecific (Randy Coyle) - Lab Data Lab Results 03/17/24 03/17/24 03/17/24 Range/Units 05:23 05:47 06:02 WBC (3.8-10.6) k/uL RBC (3.80-5.40) m/uL Hgb (11.4-16.0) gm/dL Hct (34.0-46.0) % MCV (80.0-100.0) fL MCH (25.0-35.0) pg MCHC (31.0-37.0) g/dL RDW (11.5-15.5) % Plt Count (150-450) k/uL MPV Neutrophils % % Lymphocytes % % Monocytes % % Eosinophils % % Basophils % % Neutrophils # (1.3-7.7) k/uL Lymphocytes # (1.0-4.8) k/uL Monocytes # (0-1.0) k/uL Eosinophils # (0-0.7) k/uL Basophils # (0-0.2) k/uL Sodium 135 L (137-145) mmol/L Potassium 5.1 (3.5-5.1) mmol/L Chloride 105 (98-107) mmol/L Carbon Dioxide 23 (22-30) mmol/L Anion Gap 7 mmol/L BUN 15 (7-17) mg/dL Creatinine 0.81 (0.52-1.04) mg/dL Est GFR (CKD-EPI)AfAm >90 (>60 ml/min/1.73 sqM) Est GFR (CKD-EPI)NonAf 79 (>60 ml/min/1.73 sqM) Glucose 122 H (74-99) mg/dL POC Glucose (mg/dL) 129 H (70-110) mg/dL POC Glu Museum Director ID Jaimee Heriberto Calcium 9.4 (8.4-10.2) mg/dL Total Bilirubin 0.9 (0.2-1.3) mg/dL AST 38 H (14-36) U/L ALT 22 (4-34) U/L Alkaline Phosphatase 91 (38-126) U/L Total Protein 8.4 H (6.3-8.2) g/dL Albumin 4.8 (3.5-5.0) g/dL Urine Color Yellow Urine Appearance Clear (Clear) Urine pH 5.0 (5.0-8.0) Ur Specific [place] 1.022 (1.001-1.035) Urine Protein Negative (Negative) Urine Glucose (UA) Negative (Negative) Urine Ketones Negative (Negative) Urine Blood Negative (Negative) Urine Nitrite Negative (Negative) Urine Bilirubin Negative (Negative) Urine Urobilinogen <2.0 (<2.0) mg/dL Ur Leukocyte Esterase Negative (Negative) Salicylates <1.0 mg/dL Urine Opiates Screen (NotDetected) Ur Oxycodone Screen (NotDetected) Urine Methadone Screen (NotDetected) Acetaminophen <10.0 ug/mL Ur Barbiturates Screen (NotDetected) U Tricyclic Antidepress (NotDetected) Ur Phencyclidine Scrn (NotDetected) Ur Amphetamines Screen (NotDetected) U Methamphetamines Scrn (NotDetected) U Benzodiazepines Scrn (NotDetected) Urine Cocaine Screen (NotDetected) U Marijuana (THC) Screen (NotDetected) Serum Alcohol <10 mg/dL Influenza Type A (PCR) (Not Detectd) Influenza Type B (PCR) (Not Detectd) RSV (PCR) (Not Detectd) SARS-CoV-2 (PCR) (Not Detectd) 03/17/24 03/17/24 03/17/24 Range/Units 06:02 06:17 06:18 WBC 7.4 (3.8-10.6) k/uL RBC 4.28 (3.80-5.40) m/uL Hgb 13.0 (11.4-16.0) gm/dL Hct 39.7 (34.0-46.0) % MCV 92.6 (80.0-100.0) fL MCH 30.4 (25.0-35.0) pg MCHC 32.8 (31.0-37.0) g/dL RDW 13.2 (11.5-15.5) % Plt Count 243 (150-450) k/uL MPV 7.7 Neutrophils % 79 % Lymphocytes % 16 % Monocytes % 3 % Eosinophils % 0 % Basophils % 0 % Neutrophils # 5.9 (1.3-7.7) k/uL Lymphocytes # 1.2 (1.0-4.8) k/uL Monocytes # 0.2 (0-1.0) k/uL Eosinophils # 0.0 (0-0.7) k/uL Basophils # 0.0 (0-0.2) k/uL Sodium (137-145) mmol/L Potassium (3.5-5.1) mmol/L Chloride (98-107) mmol/L Carbon Dioxide (22-30) mmol/L Anion Gap mmol/L BUN (7-17) mg/dL Creatinine (0.52-1.04) mg/dL Est GFR (CKD-EPI)AfAm (>60 ml/min/1.73 sqM) Est GFR (CKD-EPI)NonAf (>60 ml/min/1.73 sqM) Glucose (74-99) mg/dL POC Glucose (mg/dL) (70-110) mg/dL POC Glu Museum Director ID Calcium (8.4-10.2) mg/dL Total Bilirubin (0.2-1.3) mg/dL AST (14-36) U/L ALT (4-34) U/L Alkaline Phosphatase (38-126) U/L Total Protein (6.3-8.2) g/dL Albumin (3.5-5.0) g/dL Urine Color Urine Appearance (Clear) Urine pH (5.0-8.0) Ur Specific [place] (1.001-1.035) Urine Protein (Negative) Urine Glucose (UA) (Negative) Urine Ketones (Negative) Urine Blood (Negative) Urine Nitrite (Negative) Urine Bilirubin (Negative) Urine Urobilinogen (<2.0) mg/dL Ur Leukocyte Esterase (Negative) Salicylates mg/dL Urine Opiates Screen Not Detected (NotDetected) Ur Oxycodone Screen Not Detected (NotDetected) Urine Methadone Screen Not Detected (NotDetected) Acetaminophen ug/mL Ur Barbiturates Screen Not Detected (NotDetected) U Tricyclic Antidepress Not Detected (NotDetected) Ur Phencyclidine Scrn Not Detected (NotDetected) Ur Amphetamines Screen Not Detected (NotDetected) U Methamphetamines Scrn Not Detected (NotDetected) U Benzodiazepines Scrn Not Detected (NotDetected) Urine Cocaine Screen Not Detected (NotDetected) U Marijuana (THC) Screen Detected H (NotDetected) Serum Alcohol mg/dL Influenza Type A (PCR) Not Detected (Not Detectd) Influenza Type B (PCR) Not Detected (Not Detectd) RSV (PCR) Not Detected (Not Detectd) SARS-CoV-2 (PCR) Not Detected (Not Detectd) Disposition <Mona John A - Last Filed: 03/17/24 07:02> <Randy Coyle - Last Filed: 03/17/24 14:37> Is patient prescribed a controlled substance at d/c from ED?: No <Casey Cervantes - Last Filed: 03/17/24 18:36> Clinical Impression: Weakness, Depression Disposition: HOME SELF-CARE Condition: Good Instructions (If sedation given, give patient instructions): Weakness (ED) Referrals: Stanford Aguirre MD [Primary Care Provider] - 1-2 days
[2024-03-17 06:08] LABS: Appearance,Urine Clear (Clear); Bilirubin,Urine Negative (Negative); Blood,Urine Negative (Negative); Color,Urine Yellow; Glucose,Urine (UA) Negative (Negative); Ketones,Urine Negative (Negative); Leukocyte Esterase,Urine Negative (Negative); Nitrite,Urine Negative (Negative); Protein,Urine Negative (Negative); Specific Gravity,Urine 1.022 (1.001-1.035); Urobilinogen,Urine <2.0 mg/dL (<2.0)
[2024-03-17 06:10] LABS: ALT 22 U/L (4-34); AST 38 U/L (14-36); Acetaminophen <10.0 ug/mL; African American GFR (CKD) >90 (>60 ml/min/1.73 sqM); Albumin 4.8 g/dL (3.5-5.0); Alcohol <10 mg/dL; Alkaline Phosphatase 91 U/L (38-126); Anion Gap 7 mmol/L; Blood Urea Nitrogen 15 mg/dL (7-17); Calcium 9.4 mg/dL (8.4-10.2); Carbon Dioxide 23 mmol/L (22-30); Chloride 105 mmol/L (98-107); Glucose 122 mg/dL (74-99); Non-African American GFR(CKD) 79 (>60 ml/min/1.73 sqM); Salicylate <1.0 mg/dL; Sodium 135 mmol/L (137-145); Total Bilirubin 0.9 mg/dL (0.2-1.3); Total Protein 8.4 g/dL (6.3-8.2)
[2024-03-17 06:13] LABS: Potassium 5.1 mmol/L (3.5-5.1)
[2024-03-17 06:56] LABS: Basophils % (A) 0 %; Eosinophils % (A) 0 %; HCT 39.7 % (34.0-46.0); Lymphocytes # (A) 1.2 k/uL (1.0-4.8); Lymphocytes % (A) 16 %; MCH 30.4 pg (25.0-35.0); MCHC 32.8 g/dL (31.0-37.0); MCV 92.6 fL (80.0-100.0); Mean Platelet Volume 7.7; Monocytes # (A) 0.2 k/uL (0-1.0); Monocytes % (A) 3 %; Neutrophils # (A) 5.9 k/uL (1.3-7.7); Neutrophils % (A) 79 %; Platelet Count 243 k/uL (150-450); RBC 4.28 m/uL (3.80-5.40); RDW 13.2 % (11.5-15.5); WBC 7.4 k/uL (3.8-10.6)
[2024-03-17 07:17] LABS: Amphetamine Screen,Urine Not Detected (NotDetected); Barbiturate Screen,Urine Not Detected (NotDetected); Benzodiazepines Screen,Urine Not Detected (NotDetected); Cocaine Screen,Urine Not Detected (NotDetected); Methadone Screen, Urine Not Detected (NotDetected); Opiate Screen,Urine Not Detected (NotDetected); Oxycodone Screen, Urine Not Detected (NotDetected); Phencyclidine Screen,Urine Not Detected (NotDetected); Tricyclic Antidepressant,Urine Not Detected (NotDetected); Urn Cannabinoid Scrn Detected (NotDetected)
[2024-03-17 10:26] VITALS: RESP 18
[2024-03-17 17:40] VITALS: BP 124/95; PULSE 60; TEMP 97
== END 2024-03-17 18:47 | disposition home or self-care (01) ==
LOC: EC 02:03
DX: F32.A Depression, unspecified (principal); Z88.0 Allergy status to penicillin; Z88.1 Allergy status to other antibiotic agents; Z91.018 Allergy to other foods; Z88.5 Allergy status to narcotic agent; Z88.6 Allergy status to analgesic agent
CPT/HCPCS: 82075; 36415; 93005; 80053; 85025; 81003; 80306; 80143; 80320; 87636; 80179; 71045; 70450; 99285; 96372 ×2; J2250

== ENCOUNTER 2024-10-28 10:31 | Day surgery (SDC) | payer MEDICARE, OTHER ==
[2024-10-27 10:10] VITALS: BMI 30.5
[~2024-10-28 10:31] MED LIST changes: +LIDOCAINE 1% (10MG/ML) FOR IV START INTRADERMA PRN; -REGADENOSON 0.4 MG/5 ML SYRINGE IV ONE
[2024-10-28 12:01] VITALS: TEMP 97.9
[2024-10-28] MEDS: LACTATED RINGERS 1,000 ML IV ONE (12:11)
[2024-10-28] MEDS: LACTATED RINGERS 1,000 ML IV SCH (12:12)
[2024-10-28] MEDS ORDERED: LIDOCAINE 2% (PF) 20 MG/ML 5 ML VIAL ONE (13:25)
[2024-10-28] MEDS ORDERED: PROPOFOL 10 MG/ML 20 ML VIAL IV ONE (13:25)
--- NOTE | 2024-10-28 13:51 | P.PCN ---
Date of Procedure: 10/28/24 Procedure(s) Performed: Brief history: Patient is a pleasant 64-year-old white female scheduled for an elective upper endoscopy as well as colonoscopy as a part of evaluation of GERD/left upper quadrant abdominal pain and change in bowel habits. Recent CAT scan of the abdomen showed some filling defect in the cecum. Procedure performed: Esophagogastroduodenoscopy with biopsy Colonoscopy with snare polypectomy Preoperative diagnosis: GERD/left upper quadrant abdominal pain Change in bowel habits and abnormal CAT scan. Anesthesia: MAC Procedure: After informed consent was obtained from the patient was brought into the endoscopy unit and IV sedation was administered by anesthesia under continuous monitoring. Initially upper endoscopy was done. The Olympus GF 160 video endoscope was inserted inserted into the mouth and esophagus intubated without any difficulty and was gradually advanced into the stomach and duodenum and carefully examined. The bulb and second part of the duodenum appeared normal. The scope was then withdrawn into the stomach adequately insufflated with air and upon careful examination the antrum had mild gastritis and biopsies were done from this area. There were multiple small gastric polyps noted in the gastric body which were also biopsied. And body, cardia and fundus appeared normal. The scope was then withdrawn into the esophagus. Small hiatal hernia noted. The GE junction was located at 35 cm to the incisors. It appeared regular with no erythema erosions or ulcerations. Rest of the esophagus appeared normal. Patient tolerated the procedure well. At this time the patient continued to remain sedation. Initial digital rectal examination was normal. Olympus CF 160 video colonoscope was then inserted into the rectum and gradually advanced to the cecum without any difficulty. Careful examination was performed as the scope was gradually being withdrawn. The prep was excellent. The cecum, ascending colon, transverse colon, appeared normal. The descending colon there was a 1 cm flat linear polyp that was removed by cold snare polypectomy. Rest of the descending colon, sigmoid colon and rectum appeared normal. Retroflexion was performed in the rectum and no lesions were noted. Patient tolerated the procedure well. Impression: 1. Upper endoscopy revealed mild antral gastritis, multiple small gastric polyps and small hiatal hernia 2. Colonoscopy revealed 1 cm flat linear polyp in the descending colon status post cold snare polypectomy Recommendations: Findings of this examination were discussed with the patient as well as her family. She was advised to follow-up with the biopsy results. Continue with Protonix 40 mg twice daily and follow antireflux measures. Follow-up in office in 2 to 3 weeks. If the biopsy of the colon polyps reveals adenoma, recommended repeat colonoscopy in 3 years.
[2024-10-28 14:16] VITALS: BP 128/83; PULSE 68; RESP 18
== END 2024-10-28 14:39 | disposition home or self-care (01) ==
LOC: ORWHC2ENDO 10:31
PROVIDERS: ATTEND Internal Medicine Gastroenterology
DX: K31.9 Disease of stomach and duodenum, unspecified (principal); K21.9 Gastro-esophageal reflux disease without esophagitis; K31.7 Polyp of stomach and duodenum; K44.9 Diaphragmatic hernia without obstruction or gangrene; K63.5 Polyp of colon; J44.9 Chronic obstructive pulmonary disease, unspecified; Z86.711 Personal history of pulmonary embolism; Z86.718 Personal history of other venous thrombosis and embolism; Z86.73 Personal history of transient ischemic attack (TIA), and cerebral infarction without residual deficits; Z88.5 Allergy status to narcotic agent; Z88.6 Allergy status to analgesic agent; Z88.8 Allergy status to other drugs, medicaments and biological substances; Z79.01 Long term (current) use of anticoagulants; Z79.51 Long term (current) use of inhaled steroids; Z79.899 Other long term (current) drug therapy
CPT/HCPCS: 88305; 45385; 43239; J2704; J2003